=== PATIENT | male | born 1955 | race Caucasian/White ===

== ENCOUNTER 2018-08-20 05:43 | Day surgery (SDC) | payer MEDICARE, OTHER ==
--- NOTE | 2018-08-19 12:07 | PREOPHP ---
DATE OF ADMISSION: 08/20/2018 HISTORY OF PRESENT ILLNESS: This 63-year-old gentleman is admitted for elective cataract surgery of the right eye. The patient has had a 3-year history of progressive pterygium formation which is inte rfering with the visual acuity in his right eye. The patient previously has been treated conservativ charlie, but symptoms have persisted. Patient's systemic history is positive for neuropathy, benign pros tatic hypertrophy, and GERD. CURRENT MEDICATIONS INCLUDE: 1. Naprosyn. 2. Proscar. 3. Gabapentin. 4. Omeprazole. 5. Lorazepam. 6. Ranitidine. ALLERGIES: There are no known allergies. PHYSICAL EXAMINATION: The visual acuity with best correction is 20/100 in the right eye and 20/40 in the left eye. Slit lamp examination reveals a vascularized nasal pterygium extending on to clear co rnea into the central visual access in the right eye. Patient also has moderate nuclear sclerotic ca taracts. Applanation tonometry is 14 mmHg in both eyes. Examination of the retina is within normal limits. DIAGNOSIS: Visually impairing pterygium, right eye. PLAN: Pterygium excision with mitomycin C application and rotating conjunctival graft, right eye. T he risks and alternatives to the surgery have been discussed with the patient including the potential for recurrence of the pterygium growth. The patient understands this and agrees to proceed with kathy smalls. Dictated By: ELEUTERIO REED/GLORIA Conf#: [id number] DID#: [id number]
[2018-08-20] VITALS (12 sets, daily range): BP systolic 109–126; BP diastolic 69–78; PULSE 58–68; RESP 12–23; Ht 165.1 cm; Wt 81.0 kg
[~2018-08-20] VITALS: Ht 165.1 cm; Wt 81.0 kg
[2018-08-20] MEDS ORDERED: MOXIFLOXACIN 0.5% 3 ML OPH OPER SCH (06:00)
[2018-08-20] MEDS ORDERED: SOD CHLORIDE 0.9% 1,000 ML IV SCH (06:00)
[2018-08-20] MEDS ORDERED: LIDOCAINE 1%/EPI (1:100,000) (MDV) 20 ML ONE (06:48)
[2018-08-20] MEDS ORDERED: FINA5TAB PO (06:56)
[2018-08-20] MEDS ORDERED: OMEP40CA6 PO (06:57)
[2018-08-20] MEDS ORDERED: NAPR-688 PO (06:57)
[2018-08-20] MEDS ORDERED: LORA1TAB PO (06:57)
[2018-08-20] MEDS ORDERED: BALANCED SALT SOLN 15 ML OPH IRRIG ONE (07:00)
[2018-08-20] MEDS ORDERED: TOBRAMYCIN/DEXAMETH 3.5 GM OPH OINT ONE (07:00)
[2018-08-20] MEDS ORDERED: MITOMYCIN 5 MG INJ OP ONE (07:12)
[2018-08-20] MEDS ORDERED: BUPIVACAINE 0.5% (SDV) 30 ML INJ ONE (07:20)
[2018-08-20] MEDS ORDERED: TETRACAINE 0.5% 4 ML OPH RIGHT EYE ONE (07:30)
[2018-08-20] MEDS ORDERED: BUPIVACAINE 0.5% (MPF) 30 ML INJ INJ ONE (07:30)
[2018-08-20] MEDS ORDERED: LIDOCAINE 2%/EPI (MDV) 20ML INJ INJ ONE (07:30)
--- NOTE | 2018-08-20 07:31 | PREAC ---
Date/Time of Note Date/Time of Note DATE: 08/20/18 TIME: 07:29 Anesthesia Eval and Record Evaluation Time Pre-Procedure Interview DATE: 08/20/18 TIME: 07:29 Age 63 Sex male NPO: 8 hrs Preoperative diagnosis Rt eye Cataract Planned procedure Rt eye cataract extraction, IOL implant Past Medical History Past Medical History: Includes GI: Obesity Surgery & Anesthesia Issues No known issue Meds Anticoagulation: No Beta Francesca within 24 hr: No Reason Beta Francesca not given: Pt. not on B-Francesca Reported Medications Lorazepam* (Lorazepam*) 1 Mg Tablet, 1 MG PO DAILY PRN for ANXIETY, #30 TAB 08/20/18 Omeprazole* (Omeprazole*) 40 Mg Capsule.dr, 40 MG PO AC BREAKFAST, #30 CAP 08/20/18 Naproxen* (Naproxen*) 500 Mg Tablet, 500 MG PO DAILY PRN for PAIN AND/OR INFLAMMATION, TAB 08/20/18 Finasteride* (Proscar*) 5 Mg Tablet, 5 MG PO DAILY, TAB 08/20/18 Current Medications Moxifloxacin HCl (Vigamox) 1 drop Q5 MIN X 3 OPER Last administered on 08/20/18at 06:48; Admin Dose 1 DROP; Start 08/20/18 at 06:00 Sodium Chloride 1,000 ml @ 25 mls/hr Q24H IV Last administered on 08/20/18at 06:47; Admin Dose 25 MLS/HR; Start 08/20/18 at 06:00 Meds reviewed: Yes Allergies Coded Allergies: No Known Allergy (Unverified , 08/20/18) Allergies Reviewed: Yes Labs/Studies Labs Reviewed: Reviewed by anesthesiologist test: N/A Studies: ECG Pre-procedure Exam Last vitals Vital Signs Date Temp Pulse Resp B/P (MAP) Pulse Ox O2 O2 Flow FiO2 Time Delivery Rate 08/20/18 98.0 60 18 111/78 96 Room Air 06:53 (89) Airway: Adequate mouth opening, Adequate thyromental dist Mallampati: Mallampati II Teeth: Normal Lung: Normal Heart: Normal ASA Physical Status ASA physical status: 3 Emergency: None Planned Anesthetic General/MAC: MAC Planned Pain Management Parenteral pain med Pre-operative Attestations Prior to commencing anesthesia and surgery, the patient was re-evaluated, there was verification of: *The patient's identity *The results of appropriate recent lab work and preoperative vital signs *The above evaluation not changing prior to induction *Anesthetic plan, risk benefits, alternative and complications discussed with patient/family; questions answered; patient/family understands, accepts and wishes to proceed. MARISA HUNTER MD Aug 20, 2018 07:31
[2018-08-20] MEDS ORDERED: FENTAnyl 50 MCG/ML VIAL ONE (07:36)
[2018-08-20] MEDS ORDERED: MIDAZOLAM 1 MG/ML 2 ML INJ ONE (07:36)
[2018-08-20] MEDS ORDERED: TOBRAMYCIN/DEXAMETH 3.5 GM OPH OINT RIGHT EYE ONE (08:12)
[2018-08-20] MEDS ORDERED: LIDOCAINE 2% (SDV) 5 ML INJ ONE (08:16)
[2018-08-20] MEDS ORDERED: PROPOFOL 20 ML ONE (08:16)
--- NOTE | 2018-08-20 08:26 | SIPON ---
Date/Time of Note Date/Time of Note DATE: 08/20/18 TIME: 08:25 Operative Report Preoperative Diagnosis pterygium od Postoperative Diagnosis same Operation/Procedure Performed pterygium excision with MMC application and rotating conjunctival graft od Surgeon eleuterio davis registered nurse first assistant nonw Anesthesia: general, MAC Estimated blood loss: none Transfusion Required none Specimen none Grafts/Implants none Complications none ELEUTERIO DAVIS MD Aug 20, 2018 08:26
--- NOTE | 2018-08-20 08:28 | PAC ---
Date/Time of Note Date/Time of Note DATE: 08/20/18 TIME: 08:27 Post-Anesthesia Notes Post-Anesthesia Note Last documented vital signs Vital Signs Date Temp Pulse Resp B/P (MAP) Pulse Ox O2 O2 Flow FiO2 Time Delivery Rate 08/20/18 98.0 60 18 111/78 96 Room Air 06:53 (89) Activity: WNL Respiratory function: WNL Cardiovascular function: WNL Mental status: Baseline Pain reasonably controlled: Yes Hydration appropriate: Yes Nausea/Vomiting absent: Yes Comments BP:109/71, P:68, Spo2:100%, T:99 MARISA HUNTER MD Aug 20, 2018 08:28
[2018-08-20] MEDS ORDERED: ONDANSETRON 4 MG INJ IV PRN (08:30)
[2018-08-20] MEDS ORDERED: FENTAnyl 50 MCG/ML VIAL IV PRN (08:30)
--- NOTE | 2018-08-20 08:45 | OPR ---
DATE OF OPERATION: 08/20/2018 PREOPERATIVE DIAGNOSIS: Pterygium in the right eye. POSTOPERATIVE DIAGNOSIS: Pterygium in the right eye. OPERATION PERFORMED: Pterygium excision with mitomycin C application and rotating conjunctival graft , right eye. SURGEON: Eleuterio Shen MD ANESTHESIA: Dr. Rice DESCRIPTION OF PROCEDURE: The patient was brought to the operating room in an eye gurney, positioned appropriately, attached to electrocardiogram monitoring, given oxygen via nasal cannula. After the patient was prepped and draped and some intravenous sedation was administered, and then the patient r eceived local anesthesia using lidocaine 2% with epinephrine, mixed with Marcaine 0.75% given in a [place] bconjunctival injection beneath the bed of the pterygium. Using a fine scissors, the tail of the pte rygium was incised over the sclera and dissected to the corneoscleral limbus in the nasal quadrant. The pterygium head attached to the corneal surface was then freed and removed en bloc. Following thi s, some additional dissection was performed on the surface of the cornea to achieve a smooth contour and then a jasmeet tipped bur was used to bolivian the pterygium bed until no evidence of irregularity was present. Cautery was applied to the scleral bed to obtain hemostasis. After this was completed, a Weck cell sponge impregnated with mitomycin 0.03% was placed on the bare sclera and left in place for 1 minute followed by irrigation with balanced salt solution for an additional minute. After this had been completed, the superior conjunctiva was disinserted from the limbus using a fine scissors a nd carried from the edge of the pterygium incision to the superotemporal aspect of the limbus. The i ncision was then carried forward by creating a tongue-like flap superiorly and rotating the flap into place over the bare sclera where the pterygium had previously been placed. This flap was secured to adjacent inferonasal conjunctiva with interrupted 8-0 Vicryl sutures, 3 sutures were placed covering the entire pterygium bed. When it was noted that hemostasis was present the speculum was removed. TobraDex ointment was placed on the surface of the eye and then a pressure patch was applied. The pa tient then left the operating room in satisfactory condition. Dictated By: ELEUTERIO REED/GLORIA Conf#: [id number] [facility]#: [id number]
== END 2018-08-20 09:49 | disposition home or self-care (01) ==
LOC: SDS 05:43
PROVIDERS: ATTEND Ophthalmology
DX: H11.001 Unspecified pterygium of right eye (principal)
CPT/HCPCS: 65426; J2250; J3010; J9280